=== PATIENT | female | born 1975 | race Caucasian/White ===

== ENCOUNTER → 2017-12-04 | Outpatient (CLI) | payer OTHER ==
--- NOTE | 2017-12-04 14:08 | US ---
EXAMINATION TYPE: US thyroid st tissue head/neck DATE OF EXAM: 12/04/2017 COMPARISON: NONE CLINICAL HISTORY: R22.0 Swelling mass palpable abn neck. GLAND SIZE: Right Lobe: 5.2 x 2.2 x 2.1 cm Overall Parenchyma: homogenous Left Lobe: 5.3 x 1.7 x 2.3 cm Overall Parenchyma: homogeneous Isthmus Thickness: 0.6 cm NODULES RIGHT: # of nodules measured on right: 2 1. 0.6 X 0.8 x 0.9 cm anechoic cystic nodule at the upper-mid pole with well-defined margins. This nodule is wider than tall and shows no intranodular vascularity. No prior here 2. 1.9 X 1.3 x 1.5 cm hypoechoic mixed nodule at the mid pole with well-defined margins. This nodul e is wider than tall and shows intranodular vascularity and possible microcalcifications. LEFT: # of nodules measured on left: 1 1. 0.6 X 0.4 x 0.8 cm hypoechoic solid nodule at the lower pole with well-defined margins . This n odule is wider than tall and shows . ISTHMUS: # of nodules measured in the isthmus: 0 Bilateral neck scanned, no evidence of lymphadenopathy. IMPRESSION: 1. Mixed cystic and solid right midpole thyroid nodule measures 1.9 cm and contains some possible mara rocalcifications and is therefore intermediate suspicion warranting fine-needle aspiration. Other brianda ateral nodules are subcentimeter and surveillances recommended for these nodules. 2. Enlargement of the thyroid gland without hypervascularity.
== END | disposition home or self-care (01) ==
LOC: RADUSWWP 12:02
PROVIDERS: ATTEND Family Medicine
DX: E04.2 Nontoxic multinodular goiter (principal)
CPT/HCPCS: 76536